=== PATIENT | female | born 1945 | race Two or more races ===

== ENCOUNTER 2023-09-27 05:14 | Emergency (ER) | payer OTHER ==
[~2023-09-27] VITALS: Ht 142.2 cm; Wt 54.4 kg
[2023-09-27] MEDS ORDERED: ATORVASTATIN CA40 MG PO (05:39)
[2023-09-27] MEDS ORDERED: NEURONTIN300 MG PO (05:39)
== END 2023-09-27 06:54 | disposition home or self-care (01) ==
LOC: ER 05:14
DX: H11.31 Conjunctival hemorrhage, right eye (principal)